=== PATIENT | male | born 1980 | race Caucasian/White ===

== ENCOUNTER 2016-09-26 19:05 | Emergency (ER) | payer SELFPAY ==
[~2016-09-26] VITALS: Ht 180.3 cm; Wt 97.7 kg
[2016-09-26 19:08] VITALS: TEMP 98.3
[2016-09-26] MEDS ORDERED: METHADONE HC10 MG/M3 PO (19:11)
[2016-09-26 20:07] LABS: HEMATOCRIT 46.7 % (42.0-52.0); HEMOGLOBIN 16.1 g/dl (13.5-18.0); MEAN CELL VOLUME 89 fl (80.0-100.0); MEAN CORPUSCULAR HEMOGLOBIN 31 pg (27.0-31.0); MEAN CORPUSCULAR HGB CONC 35 g/dl (33.0-37.0); MEAN PLATELET VOLUME 9.1 fl (7.4-10.4); PLATELET COUNT 326 K/mm3 (130-400); RED BLOOD COUNT 5.27 M/mm3 (4.20-5.60); REDCELL DISTRIBUTION WIDTH-CV 12.4 % (11.5-14.5)
[2016-09-26 20:10] LABS: ADD PATHOLOGY DIFF REVIEW NO
[2016-09-26 20:24] LABS: ADJUSTED CALCIUM 8.8 mg/dL (8.4-10.2); ALBUMIN 4.6 gm/dL (3.5-5.0); BILIRUBIN,TOTAL 1.1 mg/dL (0.0-1.0); CALCIUM 9.3 mg/dL (8.4-10.2); CREATININE, serum 0.82 mg/dL (0.66-1.25); POTASSIUM 3.9 mmol/L (3.4-5.0); TOTAL PROTEIN 7.9 gm/dL (6.4-8.2)
[2016-09-26 20:30] LABS: BAND 5 % (0-10); NEUTROPHILS 72 % (42.0-75.2); TOTAL CELLS COUNTED 100
[2016-09-26 21:48] VITALS: BP 121/81; PULSE 82
== END 2016-09-26 21:59 | disposition home or self-care (01) ==
LOC: COL.ER 19:05
PROVIDERS: Emergency Medicine
DX: F11.23 Opioid dependence with withdrawal (principal)
CPT/HCPCS: J2270; J2405; J2550; J7030

== ENCOUNTER 2016-09-29 09:32 | Emergency (ER) | payer SELFPAY ==
[~2016-09-29] VITALS: Ht 180.3 cm; Wt 97.7 kg
[~2016-09-29 09:32] MED LIST: METHADONE HC10 MG/M3 PO
[2016-09-29 09:34] VITALS: TEMP 98.2
[2016-09-29 10:17] LABS: BASO % 0.2 % (0.0-2.0); EOS % 0.1 % (0-4.0); GRAN # 15.4 (1.4-6.5); GRAN % 85.7 % (42.2-75.2); HEMATOCRIT 49.2 % (42.0-52.0); LYMPH # 1.8 (1.2-3.4); MEAN CELL VOLUME 87 fl (80.0-100.0); MEAN CORPUSCULAR HEMOGLOBIN 30 pg (27.0-31.0); MEAN CORPUSCULAR HGB CONC 35 g/dl (33.0-37.0); MEAN PLATELET VOLUME 9.1 fl (7.4-10.4); MONO # 0.6 (0.1-0.6); MONO % 3.1 % (1.7-9.3); PLATELET COUNT 373 K/mm3 (130-400); RED BLOOD COUNT 5.63 M/mm3 (4.20-5.60); REDCELL DISTRIBUTION WIDTH-CV 12.4 % (11.5-14.5); WHITE BLOOD COUNT 17.9 K/mm3 (4.8-10.8)
[2016-09-29 10:52] LABS: ADJUSTED CALCIUM 9.2 mg/dL (8.4-10.2); ALANINE AMINOTRANSFERASE 25 U/L (21-72); ALBUMIN 4.9 gm/dL (3.5-5.0); ALKALINE PHOSPHATASE 90 U/L (50-136); ANION GAP 19 mmol/L (7-16); BILIRUBIN,TOTAL 1.1 mg/dL (0.0-1.0); BLOOD UREA NITROGEN 11 mg/dL (9-20); CALCIUM 9.9 mg/dL (8.4-10.2); CARBON DIOXIDE 20 mmol/L (22-30); CHLORIDE 101 mmol/L (98-107); CREATININE, serum 0.81 mg/dL (0.66-1.25); GLUCOSE 107 mg/dL (74-106); POTASSIUM 3.7 mmol/L (3.4-5.0); SODIUM 140 mmol/L (137-145); TOTAL PROTEIN 8.4 gm/dL (6.4-8.2)
[2016-09-29 11:02] LABS: ACETAMINOPHEN < 10 ug/mL (10-30); SALICYLATE < 1.0 mg/dL
[2016-09-29 12:20] VITALS: BP 123/84; PULSE 104
[2016-09-29] MEDS ORDERED: VISTARIL 2525 MG/CAP PO (15:30)
[2016-09-29] MEDS ORDERED: ZOFRAN 4MG T4 MG/TAB PO (15:31)
[2016-09-29 15:59] LABS: LIPASE 65 U/L (23-300)
[2016-09-29 16:00] LABS: AMPHETAMINE URINE NEGATIVE; BARBITURATES URINE NEGATIVE; BENZODIAZEPINES URINE POSITIVE; BUPRENORPHINE URINE NEGATIVE; METHADONE URINE POSITIVE; OPIATES URINE NEGATIVE; OXYCODONE URINE NEGATIVE; PHENCYCLIDINE URINE NEGATIVE; PROPOXYPHENE URINE NEGATIVE; THC CANNABINOIDS URINE POSITIVE
== END 2016-09-29 14:18 | disposition left against medical advice (07) ==
LOC: COL.ER 09:32
PROVIDERS: Physician Assistant
DX: F11.23 Opioid dependence with withdrawal (principal); F17.210 Nicotine dependence, cigarettes, uncomplicated; Z98.890 Other specified postprocedural states
CPT/HCPCS: J1630; J1885; J2405; J2550; J7030; J7050; Q9967

== ENCOUNTER 2016-09-29 14:39 | Emergency (ER) | payer SELFPAY ==
[~2016-09-29] VITALS: Ht 180.3 cm; Wt 97.7 kg
[2016-09-29 14:41] VITALS: BP 120/78; PULSE 107; TEMP 98.4
[2016-09-29] MEDS ORDERED: VISTARIL 2525 MG/CAP PO (15:30)
[2016-09-29] MEDS ORDERED: ZOFRAN 4MG T4 MG/TAB PO (15:31)
== END 2016-09-29 15:33 | disposition left against medical advice (07) ==
LOC: COL.ER 14:39
DX: F11.23 Opioid dependence with withdrawal (principal); F17.210 Nicotine dependence, cigarettes, uncomplicated; Z98.890 Other specified postprocedural states